=== PATIENT | male | born 1985 | race Two or more races ===

== ENCOUNTER 2022-01-03 21:38 | Emergency (ER) | payer MEDICAID ==
[~2022-01-03] VITALS: Ht 170.2 cm; Wt 69.9 kg
[2022-01-03 22:10] VITALS: BP 131/67
--- NOTE | 2022-01-03 22:22 | NUR ---
PT ELOPED FROM ED. ER MD JAY MADE AWARE.
== END 2022-01-03 22:23 | disposition left against medical advice (07) ==
LOC: ER 21:41
DX: Z53.21 Procedure and treatment not carried out due to patient leaving prior to being seen by health care provider (principal)

== ENCOUNTER 2024-08-22 15:13 | Emergency (ER) | payer OTHER, MEDICAID ==
[~2024-08-22] VITALS: Ht 175.3 cm; Wt 74.8 kg
[2024-08-22] MEDS ORDERED: IBUPROFEN 400 MG TABLET ONE (16:14)
[2024-08-22] MEDS: IBUPROFEN 600 MG TABLET PO ONE (16:18)
[2024-08-22] MEDS ORDERED: IBUP-1490 PO (16:36)
[2024-08-22 16:45] VITALS: BP 142/70; TEMP 98.1; O2SAT 99
== END 2024-08-22 16:50 | disposition home or self-care (01) ==
LOC: ER 15:30
DX: S60.221A Contusion of right hand, initial encounter (principal); R07.81 Pleurodynia; M79.641 Pain in right hand; Z85.89 Personal history of malignant neoplasm of other organs and systems; Y04.0XXA Assault by unarmed brawl or fight, initial encounter; Y93.89 Activity, other specified; Y92.89 Other specified places as the place of occurrence of the external cause; Y99.8 Other external cause status
CPT/HCPCS: 71045-TC; 73130-TC